=== PATIENT | male | born 1965 | race African-American/Black ===

== ENCOUNTER 2016-10-14 22:58 | Inpatient (IN) | payer SELFPAY ==
[~2016-10-14] VITALS: Ht 182.9 cm; Wt 59.6 kg
[2016-10-14 23:48] LABS: BASO % 0 % (0-3); EOS % 0 % (0-3); HEMATOCRIT 44.3 % (39.0-53.0); HEMOGLOBIN 15.2 g/dL (13.0-17.5); LYMPH % 9 % (24-48); MEAN CORPUSCULAR HEMOGLOBIN 32 pg (25-35); MEAN CORPUSCULAR HGB CONC 34 g/dL (31-37); MEAN CORPUSCULAR VOLUME 93 fL (79-100); MONO % 8 % (0-9); NEUT % 82 % (31-73); PLATELET COUNT 177 x10^3/uL (140-400); RED BLOOD COUNT 4.78 x10^6/uL (4.30-5.70)
[2016-10-14 23:59] LABS: CALCIUM 9.6 mg/dL (8.5-10.1); CREATININE 1.2 mg/dL (0.7-1.3); GFR 77.2; POTASSIUM 3.9 mmol/L (3.5-5.1)
[2016-10-15 00:05] LABS: DIRECT BILIRUBIN 1.4 mg/dL (0.0-0.2); TOTAL BILIRUBIN 1.9 mg/dL (0.2-1.0); TOTAL PROTEIN 7.8 g/dL (6.4-8.2)
[2016-10-15] MEDS ORDERED: HYDROmorphone 2 MG/ML VIAL IV PRN (00:45)
[2016-10-15 00:49] LABS: BILIRUBIN,URINE NEGATIVE (NEG); GLUCOSE,URINE NEGATIVE (NEG); NITRITE,URINE NEGATIVE (NEG); PROTEIN,URINE NEGATIVE (NEG-TRACE)
[2016-10-15 00:54] LABS: BACTERIA,URINE 0 /HPF (0-FEW); RBC,URINE OCC /HPF (0-2); SQUAMOUS EPITHELIAL CELL,UR OCC /LPF; WBC,URINE 0 /HPF (0-4)
[2016-10-15] MEDS ORDERED: ONDANSETRON PF 4 MG/2 ML VIAL. IV ONE (01:00)
[2016-10-15] MEDS ORDERED: IV NORMAL SALINE 1000ML BAG 1,000 ML IV ONE (01:00)
[2016-10-15] MEDS ORDERED: ONDANSETRON PF 4 MG/2 ML VIAL. IV PRN (01:45)
[2016-10-15] MEDS ORDERED: MORPHINE SULFATE 2 MG/ML DISP.SYRIN. IV PRN (01:45)
[2016-10-15] MEDS ORDERED: CONTRAST GIVEN MC PRN (02:15)
[2016-10-15] MEDS ORDERED: IOHEXOL 300 MG/ML 75 ML VIAL IV ONE (02:30)
--- NOTE | 2016-10-15 02:50 | RAD ---
INDICATION : ruq pain, started after dinner tonight, pt ate around 6pm COMPARISON: None TECHNIQUE: Multiple ultrasound images obtained through the abdomen in grayscale and color. FINDINGS: Liver: Echotexture within normal limits in visualized portions of liver. Gallbladder: Gallstones. IVC: Partially distended at level of liver. Common Bile Duct: 5 mm Pancreas: Poorly seen Right Kidney: No hydronephrosis. IMPRESSION: 1. Gallstones are visualized including nonmobile stone in gallbladder neck region. Electronically signed by: Brandt Perez MD (10/15/2016 2:47 AM) [facility]
--- NOTE | 2016-10-15 02:51 | PHYS DOC ---
Past Medical History Past Medical History: Other Additional Past Medical Histor: GALLSTONES, DEAF Past Surgical History: No Surgical History Alcohol Use: Rarely Drug Use: None Adult General Chief Complaint Chief Complaint: ABDOMINAL PAIN HPI HPI 51-year-old male presenting to the emergency department with epigastric abdominal pain over the past 2 hours. His pain is sharp moderate intermittent pain without alleviating factors. It is associated with nausea without vomiting. He denies fevers chills. He denies blood in his stools. Review of systems is negative for chest pain shortness of breath and numbness weakness or tingling. All other review of systems is negative unless otherwise noted in history of present illness. ED course: 51-year-old male presenting with epigastric abdominal pain. Patient was afebrile with a normal heart rate here in our emergency department. Labs obtained. IV established and fluids given along with pain and nausea medications. Since labs came back with increase transaminitis and elevated bilirubin. Ultrasound of the gallbladder was not suggestive of acute cholecystitis. Common bile duct at the upper limits of normal. CT the abdomen pelvis obtained. The patient was then admitted to our hospital for further evaluation workup and care. GI consult placed Review of Systems Review of Systems SEE ABOVE. Physical Exam Physical Exam SEE ABOVE Constitutional: Well developed, well nourished, no acute distress, non-toxic appearance. [] HENT: Normocephalic, atraumatic, bilateral external ears normal, oropharynx moist, no oral exudates, nose normal. [] Eyes: PERRLA, EOMI, conjunctiva normal, no discharge. [] Neck: Normal range of motion, no tenderness, supple, no stridor. [] Cardiovascular:Heart rate regular rhythm, no murmur [] Lungs & Thorax: Bilateral breath sounds clear to auscultation [] Abdomen: Abdomen is soft and mildly tender in the epigastrium without rebound tenderness or guarding. Negative Mckee sign. He did McBurney's point. Skin: Warm, dry, no erythema, no rash. [] Back: No tenderness, no CVA tenderness. [] Extremities: No tenderness, no cyanosis, no clubbing, ROM intact, no edema. [] Neurologic: Alert and oriented X 3, normal motor function, normal sensory function, no focal deficits noted. [] Psychologic: Affect normal, judgement normal, mood normal. [] Current Patient Data Vital Signs Vital Signs Date Time Temp Pulse Resp B/P (MAP) Pulse Ox O2 Delivery O2 Flow Rate FiO2 10/15/16 00:08 78 23 133/76 (95) 99 10/14/16 23:08 Room Air 10/14/16 23:00 97.9 97.9 Lab Values Laboratory Tests Test 10/14/16 23:10 10/14/16 23:24 10/15/16 00:33 10/15/16 00:40 Sodium Level 139 mmol/L (136-145) Potassium Level 3.9 mmol/L (3.5-5.1) Chloride Level 102 mmol/L (98-107) Carbon Dioxide Level 29 mmol/L (21-32) Anion Gap 8 (6-14) Blood Urea Nitrogen 11 mg/dL (8-26) Creatinine 1.2 mg/dL (0.7-1.3) Estimated GFR (Cockcroft-Gault) 77.2 Glucose Level 195 mg/dL (70-99) H Calcium Level 9.6 mg/dL (8.5-10.1) Total Bilirubin 1.9 mg/dL (0.2-1.0) H Direct Bilirubin 1.4 mg/dL (0.0-0.2) H Aspartate Amino Transferase (AST) 261 U/L (15-37) H Alanine Aminotransferase (ALT) 221 U/L (16-63) H Alkaline Phosphatase 141 U/L (46-116) H Troponin I Quantitative < 0.017 ng/mL (0.000-0.055) OS-Wik-X-Type Natriuretic Peptide 13 pg/mL (0-124) Total Protein 7.8 g/dL (6.4-8.2) Albumin 4.0 g/dL (3.4-5.0) Lipase 190 U/L (73-393) White Blood Count 11.0 x10^3/uL (4.0-11.0) Red Blood Count 4.78 x10^6/uL (4.30-5.70) Hemoglobin 15.2 g/dL (13.0-17.5) Hematocrit 44.3 % (39.0-53.0) Mean Corpuscular Volume 93 fL (79-100) Mean Corpuscular Hemoglobin 32 pg (25-35) Mean Corpuscular Hemoglobin Concent 34 g/dL (31-37) Red Cell Distribution Width 13.0 % (11.5-14.5) Platelet Count 177 x10^3/uL (140-400) Neutrophils (%) (Auto) 82 % (31-73) H Lymphocytes (%) (Auto) 9 % (24-48) L Monocytes (%) (Auto) 8 % (0-9) Eosinophils (%) (Auto) 0 % (0-3) Basophils (%) (Auto) 0 % (0-3) Neutrophils # (Auto) 9.0 x10^3uL (1.8-7.7) H Lymphocytes # (Auto) 1.0 x10^3/uL (1.0-4.8) Monocytes # (Auto) 0.9 x10^3/uL (0.0-1.1) Eosinophils # (Auto) 0.0 x10^3/uL (0.0-0.7) Basophils # (Auto) 0.0 x10^3/uL (0.0-0.2) Lactic Acid Level 1.3 mmol/L (0.4-2.0) Urine Collection Type Unknown Urine Color Yellow Urine Clarity Clear Urine pH 7.0 Urine Specific [place] 1.020 Urine Protein Negative mg/dL (NEG-TRACE) Urine Glucose (UA) Negative mg/dL (NEG) Urine Ketones (Stick) Trace mg/dL (NEG) Urine Blood Negative (NEG) Urine Nitrite Negative (NEG) Urine Bilirubin Negative (NEG) Urine Urobilinogen Dipstick 2.0 mg/dL (0.2 mg/dL) Urine Leukocyte Esterase Negative (NEG) Urine RBC Occ /HPF (0-2) Urine WBC 0 /HPF (0-4) Urine Squamous Epithelial Cells Occ /LPF Urine Bacteria 0 /HPF (0-FEW) Urine Mucus Mod /LPF Laboratory Tests 10/14/16 23:24 Laboratory Tests 10/14/16 23:10 EKG EKG [] Radiology/Procedures Radiology/Procedures [] Course & Med Decision Making Course & Med Decision Making Pertinent Labs and Imaging studies reviewed. (See chart for details) [] Dragon Disclaimer Dragon Disclaimer This electronic medical record was generated, in whole or in part, using a voice recognition dictation system. Departure Departure Impression: Primary Impression: Epigastric abdominal pain Additional Impressions: Transaminitis Elevated bilirubin Disposition: ADMITTED INPATIENT Admitting Physician: Calvin Singer Condition: STABLE Referrals: NO PCP (PCP) Problem Qualifiers JAILYN SCOTT MD Oct 15, 2016 02:51
[2016-10-15 03:18] VITALS: BP 122/72
[2016-10-15] MEDS: IV NORMAL SALINE 1000ML BAG 1,000 ML IV SCH ×4 (03:30→23:05)
--- NOTE | 2016-10-15 03:58 | RAD ---
INDICATION: EPIGASTRIC PAIN TONIGHT, INCREASED LFTS
75ML OMNI 300 COMPARISON: Ultrasound earlier same day TECHNIQUE: Axial CT images were obtained through the abdomen and pelvis with intravenous contrast. One or more of the following individualized dose reduction techniques were utilized for this examination: 1. Automated exposure control; 2. Adjustment of the mA and/or kV according to patient size; 3. Use of iterative reconstruction technique. FINDINGS: Mild probable atelectasis lung bases. No abdominal aortic aneurysm. No intrahepatic bile duct dilation. No peripancreatic edema. No hydronephrosis. Spleen prominent in size, 14 cm craniocaudal. Bladder is partially distended. Calcifications of prostate. Colonic diverticulosis. The appendix does not appear inflamed. No dilated loops of bowel to suggest obstruction. Small fat-containing umbilical hernia is suspected. Degenerative changes of spine. This includes suspected disc protrusions at multiple levels. IMPRESSION: 1. No evidence of bowel obstruction, hydronephrosis or appendicitis. Electronically signed by: Brandt Perez MD (10/15/2016 3:55 AM) [facility]
--- NOTE | 2016-10-15 06:20 | EKG ---
[facility] [address] [place] [address] Test Date: 2016-10-15 Test Time: 00:32:58 Pat Name: BRYAN QUILES Department: Room: [facility] Gender: M Electric Meter Technician: : 1965 Requested By: JAILYN SCOTT Order Number: [id number] Reading MD: Shannon Anderson Measurements Intervals Rosie Rate: 74 P: 64 IA: 154 QRS: 42 QRSD: 80 T: 15 QT: 350 QTc: 393 Interpretive Statements SINUS RHYTHM LEFT ATRIAL ABNORMALITY QRS(T) CONTOUR ABNORMALITY CONSIDER ANTEROLATERAL MYOCARDIAL DAMAGE Electronically Signed On 10-18-2016 21:17:55 CDT by Shannon Anderson
[2016-10-15 07:00] VITALS: BP 126/71
--- NOTE | 2016-10-15 09:05 | PDOC2 ---
GI CONSULT Reason For Consult: Obstructive transaminitis HPI: HPI: 51 y/o male who is deaf. Unfortunately there is no film painter available and I was unable to reach his family by phone (home and cell). History obtained from chart, some w/ pen/paper. He indicates LUQ and epigastric pain began that night at 10:45 p.m. Pain is worsened w/ eating. ER notes indicate associated n /v, he does not indicate this to me. Has had some diarrhea, denies bleeding. Unclear if he has issues w/ acid reflux/heartburn. Significant labs: bili 1.9, direct 1.4, AST 261, ALT 221, Alk Phos 141. US showed gallstones including a nonmobile stone in the neck of the gallbladder. CT A/P was unrevealing. PMH: PMH: deaf; when asked about other PMH, he cannot elaborate Social History: Smoke: No ALCOHOL: none ROS: Difficult to obtain. GEN: Denies fevers CV: Denies chest pain RESP: Denies shortness of air GI: Per HPI ENDO: Denies weight changes MSK: Denies weakness SKIN: Denies pruritus Vitals: Vitals: Vital Signs Date Time Temp Pulse Resp B/P (MAP) Pulse Ox O2 Delivery O2 Flow Rate FiO2 10/15/16 07:00 97.6 69 18 126/71 (89) 95 Room Air 97.6 Labs: Labs: Laboratory Tests Test 10/14/16 23:10 10/14/16 23:24 10/15/16 00:33 10/15/16 00:40 Sodium Level 139 mmol/L (136-145) Potassium Level 3.9 mmol/L (3.5-5.1) Chloride Level 102 mmol/L (98-107) Carbon Dioxide Level 29 mmol/L (21-32) Anion Gap 8 (6-14) Blood Urea Nitrogen 11 mg/dL (8-26) Creatinine 1.2 mg/dL (0.7-1.3) Estimated GFR (Cockcroft-Gault) 77.2 Glucose Level 195 mg/dL (70-99) Calcium Level 9.6 mg/dL (8.5-10.1) Total Bilirubin 1.9 mg/dL (0.2-1.0) Direct Bilirubin 1.4 mg/dL (0.0-0.2) Aspartate Amino Transf (AST/SGOT) 261 U/L (15-37) Alanine Aminotransferase (ALT/SGPT) 221 U/L (16-63) Alkaline Phosphatase 141 U/L (46-116) Troponin I Quantitative < 0.017 ng/mL (0.000-0.055) YX-Jqs-I-Type Natriuretic Peptide 13 pg/mL (0-124) Total Protein 7.8 g/dL (6.4-8.2) Albumin 4.0 g/dL (3.4-5.0) Lipase 190 U/L (73-393) White Blood Count 11.0 x10^3/uL (4.0-11.0) Red Blood Count 4.78 x10^6/uL (4.30-5.70) Hemoglobin 15.2 g/dL (13.0-17.5) Hematocrit 44.3 % (39.0-53.0) Mean Corpuscular Volume 93 fL (79-100) Mean Corpuscular Hemoglobin 32 pg (25-35) Mean Corpuscular Hemoglobin Concent 34 g/dL (31-37) Red Cell Distribution Width 13.0 % (11.5-14.5) Platelet Count 177 x10^3/uL (140-400) Neutrophils (%) (Auto) 82 % (31-73) Lymphocytes (%) (Auto) 9 % (24-48) Monocytes (%) (Auto) 8 % (0-9) Eosinophils (%) (Auto) 0 % (0-3) Basophils (%) (Auto) 0 % (0-3) Neutrophils # (Auto) 9.0 x10^3uL (1.8-7.7) Lymphocytes # (Auto) 1.0 x10^3/uL (1.0-4.8) Monocytes # (Auto) 0.9 x10^3/uL (0.0-1.1) Eosinophils # (Auto) 0.0 x10^3/uL (0.0-0.7) Basophils # (Auto) 0.0 x10^3/uL (0.0-0.2) Lactic Acid Level 1.3 mmol/L (0.4-2.0) Urine Collection Type Unknown Urine Color Yellow Urine Clarity Clear Urine pH 7.0 Urine Specific [place] 1.020 Urine Protein Negative mg/dL (NEG-TRACE) Urine Glucose (UA) Negative mg/dL (NEG) Urine Ketones (Stick) Trace mg/dL (NEG) Urine Blood Negative (NEG) Urine Nitrite Negative (NEG) Urine Bilirubin Negative (NEG) Urine Urobilinogen Dipstick 2.0 mg/dL (0.2 mg/dL) Urine Leukocyte Esterase Negative (NEG) Urine RBC Occ /HPF (0-2) Urine WBC 0 /HPF (0-4) Urine Squamous Epithelial Cells Occ /LPF Urine Bacteria 0 /HPF (0-FEW) Urine Mucus Mod /LPF Allergies: Coded Allergies: No Known Drug Allergies (Unverified , 10/15/16) Medications: Current Medications Medications (Trade) Dose Ordered Sig/Sheeba Route PRN Reason Start Time Stop Time Status Last Admin Dose Admin Hydromorphone HCl (Dilaudid) 0.5 mg PRN Q1HR PRN IV SEVERE PAIN 10/15/16 00:45 10/15/16 07:00 DC 10/15/16 00:47 Ondansetron HCl (Zofran) 4 mg 1X ONCE IV 10/15/16 01:00 10/15/16 01:01 DC 10/15/16 00:46 Sodium Chloride 1,000 ml @ 1,000 mls/hr 1X ONCE IV 10/15/16 01:00 10/15/16 01:59 DC 10/15/16 00:47 Sodium Chloride 1,000 ml @ 100 mls/hr Q10H IV 10/15/16 01:41 10/16/16 01:40 10/15/16 03:30 Iohexol (Omnipaque 300 Mg/ml) 75 ml 1X ONCE IV 10/15/16 02:30 10/15/16 02:31 DC 10/15/16 02:11 Imaging: Imaging: RUQ US 10/15/16 IMPRESSION: 1. Gallstones are visualized including nonmobile stone in gallbladder neck region. CT A/P 10/15/16 FINDINGS: Mild probable atelectasis lung bases. No abdominal aortic aneurysm. No intrahepatic bile duct dilation. No peripancreatic edema. No hydronephrosis. Spleen prominent in size, 14 cm craniocaudal. Bladder is partially distended. Calcifications of prostate. Colonic diverticulosis. The appendix does not appear inflamed. No dilated loops of bowel to suggest obstruction. Small fat-containing umbilical hernia is suspected. Degenerative changes of spine. This includes suspected disc protrusions at multiple levels. IMPRESSION: 1. No evidence of bowel obstruction, hydronephrosis or appendicitis. PE: GEN: NAD HEENT: Atraumatic, PERRL LUNGS: CTAB HEART: RRR ABD: NABS, S/ND, LUQ to epigastrium tenderness EXTREMITY: No edema SKIN: No rashes, no jaundice NEURO/PSYCH: awake/alert A/P: A/P: Cholelithiasis Elevated LFTs LUQ/epigastric pain Deaf -- Difficult history, hearing impaired. Hopefully will be able to obtain more from family later (no answer when attempted mother's home/cell). 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 Will consult surgery for cholecystectomy w/ IOC. Will add H2 orquidea empirically. IVANA THORNTON Oct 15, 2016 09:05
--- NOTE | 2016-10-15 09:47 | PDOC1 ---
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 At the time of my examination patient's pain is 1 / 10 minutes, Denies any nausea vomiting or jaundice or hematemesis or hematochezia. 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 Allergies NKDA Social History Smoke: No ALCOHOL: none Current Problem List Problem List Problems Medical Problems: (1) Elevated bilirubin Status: Acute (2) Epigastric abdominal pain Status: Acute (3) Transaminitis Status: Acute Current Medications Current Medications Current Medications Medications (Trade) Dose Ordered Sig/Sheeba Start Time Stop Time Status Last Admin Dose Admin Famotidine (Pepcid) 20 mg QHS 10/15/16 21:00 Hydromorphone HCl (Dilaudid) 0.5 mg PRN Q1HR PRN 10/15/16 00:45 10/15/16 07:00 DC 10/15/16 00:47 Info (Do NOT chart on this entry -- for MONITORING) 1 each PRN DAILY PRN 10/15/16 02:15 10/17/16 02:14 Iohexol (Omnipaque 300 Mg/ml) 75 ml 1X ONCE 10/15/16 02:30 10/15/16 02:31 DC 10/15/16 02:11 Morphine Sulfate 2 mg PRN Q2HR PRN 10/15/16 01:45 10/16/16 01:44 Ondansetron HCl (Zofran) 4 mg PRN Q8HRS PRN 10/15/16 01:45 10/16/16 01:44 Sodium Chloride 1,000 ml @ 100 mls/hr Q10H 10/15/16 01:41 10/16/16 01:40 10/15/16 03:30 Allergies Allergies Allergies Coded Allergies Type Severity Reaction Last Updated Verified No Known Drug Allergies 10/15/16 No ROS Review of System CONSTITUTIONAL: No fever or chills EYES: No recent changes SKIN: No rash or itching CARDIOVASCULAR: No chest pain, syncope, palpitations, or edema RESPIRATORY: No SOB or cough GASTROINTESTINAL: abdominal pain NEUROLOGICAL: No headaches or weakness ENDOCRINE: No cold or heat intolerance GENITOURINARY: No urgency or frequency of urination MUSCULOSKELETAL: No back pain or joint pain LYMPHATICS: No enlarged lymph nodes PSYCHIATRIC: No anxiety or depression Physical Exam Physical Exam GEN.: No apparent distress. Alert and oriented. HEENT: Head is normocephalic, atraumatic NECK: Supple. LUNGS: Clear to auscultation. HEART: RRR, S1, S2 present. Peripheral pulses intact ABDOMEN: Soft, nontender. Positive bowel sounds. EXTREMITIES: Without any cyanosis. NEUROLOGIC: Normal speech, normal tone PSYCHIATRIC: Normal affect, normal mood. SKIN: No ulcerations Vitals Vitals Vital Signs Date Time Temp Pulse Resp B/P (MAP) Pulse Ox O2 Delivery O2 Flow Rate FiO2 10/15/16 07:00 97.6 69 18 126/71 (89) 95 Room Air 97.6 Labs Labs Laboratory Tests Test 10/14/16 23:10 10/14/16 23:24 10/15/16 00:33 10/15/16 00:40 Sodium Level 139 mmol/L (136-145) Potassium Level 3.9 mmol/L (3.5-5.1) Chloride Level 102 mmol/L (98-107) Carbon Dioxide Level 29 mmol/L (21-32) Anion Gap 8 (6-14) Blood Urea Nitrogen 11 mg/dL (8-26) Creatinine 1.2 mg/dL (0.7-1.3) Estimated GFR (Cockcroft-Gault) 77.2 Glucose Level 195 mg/dL (70-99) Calcium Level 9.6 mg/dL (8.5-10.1) Total Bilirubin 1.9 mg/dL (0.2-1.0) Direct Bilirubin 1.4 mg/dL (0.0-0.2) Aspartate Amino Transf (AST/SGOT) 261 U/L (15-37) Alanine Aminotransferase (ALT/SGPT) 221 U/L (16-63) Alkaline Phosphatase 141 U/L (46-116) Troponin I Quantitative < 0.017 ng/mL (0.000-0.055) AB-Qto-S-Type Natriuretic Peptide 13 pg/mL (0-124) Total Protein 7.8 g/dL (6.4-8.2) Albumin 4.0 g/dL (3.4-5.0) Lipase 190 U/L (73-393) White Blood Count 11.0 x10^3/uL (4.0-11.0) Red Blood Count 4.78 x10^6/uL (4.30-5.70) Hemoglobin 15.2 g/dL (13.0-17.5) Hematocrit 44.3 % (39.0-53.0) Mean Corpuscular Volume 93 fL (79-100) Mean Corpuscular Hemoglobin 32 pg (25-35) Mean Corpuscular Hemoglobin Concent 34 g/dL (31-37) Red Cell Distribution Width 13.0 % (11.5-14.5) Platelet Count 177 x10^3/uL (140-400) Neutrophils (%) (Auto) 82 % (31-73) Lymphocytes (%) (Auto) 9 % (24-48) Monocytes (%) (Auto) 8 % (0-9) Eosinophils (%) (Auto) 0 % (0-3) Basophils (%) (Auto) 0 % (0-3) Neutrophils # (Auto) 9.0 x10^3uL (1.8-7.7) Lymphocytes # (Auto) 1.0 x10^3/uL (1.0-4.8) Monocytes # (Auto) 0.9 x10^3/uL (0.0-1.1) Eosinophils # (Auto) 0.0 x10^3/uL (0.0-0.7) Basophils # (Auto) 0.0 x10^3/uL (0.0-0.2) Lactic Acid Level 1.3 mmol/L (0.4-2.0) Urine Collection Type Unknown Urine Color Yellow Urine Clarity Clear Urine pH 7.0 Urine Specific [place] 1.020 Urine Protein Negative mg/dL (NEG-TRACE) Urine Glucose (UA) Negative mg/dL (NEG) Urine Ketones (Stick) Trace mg/dL (NEG) Urine Blood Negative (NEG) Urine Nitrite Negative (NEG) Urine Bilirubin Negative (NEG) Urine Urobilinogen Dipstick 2.0 mg/dL (0.2 mg/dL) Urine Leukocyte Esterase Negative (NEG) Urine RBC Occ /HPF (0-2) Urine WBC 0 /HPF (0-4) Urine Squamous Epithelial Cells Occ /LPF Urine Bacteria 0 /HPF (0-FEW) Urine Mucus Mod /LPF Laboratory Tests Test 10/14/16 23:10 10/14/16 23:24 10/15/16 00:33 10/15/16 00:40 Sodium Level 139 mmol/L (136-145) Potassium Level 3.9 mmol/L (3.5-5.1) Chloride Level 102 mmol/L (98-107) Carbon Dioxide Level 29 mmol/L (21-32) Anion Gap 8 (6-14) Blood Urea Nitrogen 11 mg/dL (8-26) Creatinine 1.2 mg/dL (0.7-1.3) Estimated GFR (Cockcroft-Gault) 77.2 Glucose Level 195 mg/dL (70-99) Calcium Level 9.6 mg/dL (8.5-10.1) Total Bilirubin 1.9 mg/dL (0.2-1.0) Direct Bilirubin 1.4 mg/dL (0.0-0.2) Aspartate Amino Transf (AST/SGOT) 261 U/L (15-37) Alanine Aminotransferase (ALT/SGPT) 221 U/L (16-63) Alkaline Phosphatase 141 U/L (46-116) Troponin I Quantitative < 0.017 ng/mL (0.000-0.055) HP-Yiu-H-Type Natriuretic Peptide 13 pg/mL (0-124) Total Protein 7.8 g/dL (6.4-8.2) Albumin 4.0 g/dL (3.4-5.0) Lipase 190 U/L (73-393) White Blood Count 11.0 x10^3/uL (4.0-11.0) Red Blood Count 4.78 x10^6/uL (4.30-5.70) Hemoglobin 15.2 g/dL (13.0-17.5) Hematocrit 44.3 % (39.0-53.0) Mean Corpuscular Volume 93 fL (79-100) Mean Corpuscular Hemoglobin 32 pg (25-35) Mean Corpuscular Hemoglobin Concent 34 g/dL (31-37) Red Cell Distribution Width 13.0 % (11.5-14.5) Platelet Count 177 x10^3/uL (140-400) Neutrophils (%) (Auto) 82 % (31-73) Lymphocytes (%) (Auto) 9 % (24-48) Monocytes (%) (Auto) 8 % (0-9) Eosinophils (%) (Auto) 0 % (0-3) Basophils (%) (Auto) 0 % (0-3) Neutrophils # (Auto) 9.0 x10^3uL (1.8-7.7) Lymphocytes # (Auto) 1.0 x10^3/uL (1.0-4.8) Monocytes # (Auto) 0.9 x10^3/uL (0.0-1.1) Eosinophils # (Auto) 0.0 x10^3/uL (0.0-0.7) Basophils # (Auto) 0.0 x10^3/uL (0.0-0.2) Lactic Acid Level 1.3 mmol/L (0.4-2.0) Urine Collection Type Unknown Urine Color Yellow Urine Clarity Clear Urine pH 7.0 Urine Specific [place] 1.020 Urine Protein Negative mg/dL (NEG-TRACE) Urine Glucose (UA) Negative mg/dL (NEG) Urine Ketones (Stick) Trace mg/dL (NEG) Urine Blood Negative (NEG) Urine Nitrite Negative (NEG) Urine Bilirubin Negative (NEG) Urine Urobilinogen Dipstick 2.0 mg/dL (0.2 mg/dL) Urine Leukocyte Esterase Negative (NEG) Urine RBC Occ /HPF (0-2) Urine WBC 0 /HPF (0-4) Urine Squamous Epithelial Cells Occ /LPF Urine Bacteria 0 /HPF (0-FEW) Urine Mucus Mod /LPF VTE Prophylaxis Ordered VTE Prophylaxis Devices: Yes VTE Pharmacological Prophylaxi: No Assessment/Plan Assessment/Plan Acute abdominal pain: Most likely due to gallstones, visualized on ultrasound of the abdomen. Nothing by mouth today, IV hydration with normal saline, pain control with IV morphine as needed, monitor CBC BMP in a.m. Mild elevation of LFTs: Continue to monitor, general surgery and gastroenterology consultation, ordering a HIDA scan today. Plan discussed with the patient's mother at bedside agree with current plan and management. ELIAS PRESTON MD 10, 2017 09:47
--- NOTE | 2016-10-15 10:52 | PDOC2 ---
SEVERINO MORSE VALET 10/15/16 1052: CONSULT Date of Consult Date of Consult DATE: 10/15/16 TIME: 10:46 Reason for Consult Reason for Consult: cholelithiasis Referring Physician Referring Physician: Dr Figueroa Identification/Chief Complaint Chief Complaint abd pain Problems: Source Source: Caregiver, Chart review History of Present Illness Reason for Visit: Patient with hearing impairment--mother present reports he had severe epigastric pain after dinner last night. Similar episode 4 years ago, however resolved. Currently without pain Past Medical History Past Medical History no significant hx Past Surgical History Past Surgical History: No pertinent history Family History Family History: Other (noncontributory to current illness) Social History No ALCOHOL: none Lives: with Family Current Problem List Problem List Problems Medical Problems: (1) Elevated bilirubin Status: Acute (2) Epigastric abdominal pain Status: Acute (3) Transaminitis Status: Acute Current Medications Current Medications Current Medications Hydromorphone HCl (Dilaudid) 0.5 mg PRN Q1HR PRN IV SEVERE PAIN Last administered on 10/15/16 00:47; Start 10/15/16 at 00:45; Stop 10/15/16 at 07:00 ; Status DC Ondansetron HCl (Zofran) 4 mg 1X ONCE IV Last administered on 10/15/16 00:46 ; Start 10/15/16 at 01:00; Stop 10/15/16 at 01:01; Status DC Sodium Chloride 1,000 ml @ 1,000 mls/hr 1X ONCE IV Last administered on 00:47; Start 10/15/16 at 01:00; Stop 10/15/16 at 01:59; Status DC Ondansetron HCl (Zofran) 4 mg PRN Q8HRS PRN IV NAUSEA/VOMITING; Start 10/15/16 at 01:45; Stop 10/16/16 at 01:44 Morphine Sulfate 2 mg PRN Q2HR PRN IV SEVERE PAIN; Start 10/15/16 at 01:45; Stop 10/16/16 at 01:44 Sodium Chloride 1,000 ml @ 100 mls/hr Q10H IV Last administered on 10/15/16 03:30; Start 10/15/16 at 01:41; Stop 10/16/16 at 01:40 Iohexol (Omnipaque 300 Mg/ml) 75 ml 1X ONCE IV Last administered on 10/15/16t 02:11; Start 10/15/16 at 02:30; Stop 10/15/16 at 02:31; Status DC Info (Do NOT chart on this entry -- for MONITORING) 1 each PRN DAILY PRN MC SEE COMMENTS; Start 10/15/16 at 02:15; Stop 10/17/16 at 02:14 Famotidine (Pepcid) 20 mg QHS IVP ; Start 10/15/16 at 21:00 Sodium Chloride 1,000 ml @ 75 mls/hr [id number] IV ; Start 10/15/16 at 09:45 Allergies Allergies: Coded Allergies: No Known Drug Allergies (Unverified , 10/15/16) Physical Exam General: Alert, Oriented X3, Cooperative HEENT: PERRLA, Mucous membr. moist/pink Lungs: Clear to auscultation Heart: Regular rate, Normal S1, Normal S2 Abdomen: Soft, No tenderness, Other (small umbo hernia) Extremities: No clubbing, No cyanosis Skin: No rashes, No breakdown Neuro: Normal speech, Sensation intact Psych/Mental Status: Mental status NL, Mood NL MUSCULOSKELETAL: No deformity, No swelling Vitals VITALS Vital Signs Date Time Temp Pulse Resp B/P (MAP) Pulse Ox O2 Delivery O2 Flow Rate FiO2 10/15/16 08:00 Room Air 10/15/16 07:00 97.6 69 18 126/71 (89) 95 97.6 Labs Labs Laboratory Tests Test 10/14/16 23:10 10/14/16 23:24 10/15/16 00:33 10/15/16 00:40 Sodium Level 139 mmol/L (136-145) Potassium Level 3.9 mmol/L (3.5-5.1) Chloride Level 102 mmol/L (98-107) Carbon Dioxide Level 29 mmol/L (21-32) Anion Gap 8 (6-14) Blood Urea Nitrogen 11 mg/dL (8-26) Creatinine 1.2 mg/dL (0.7-1.3) Estimated GFR (Cockcroft-Gault) 77.2 Glucose Level 195 mg/dL (70-99) Calcium Level 9.6 mg/dL (8.5-10.1) Total Bilirubin 1.9 mg/dL (0.2-1.0) Direct Bilirubin 1.4 mg/dL (0.0-0.2) Aspartate Amino Transf (AST/SGOT) 261 U/L (15-37) Alanine Aminotransferase (ALT/SGPT) 221 U/L (16-63) Alkaline Phosphatase 141 U/L (46-116) Troponin I Quantitative < 0.017 ng/mL (0.000-0.055) EU-Nzj-[id number]-Type Natriuretic Peptide 13 pg/mL (0-124) Total Protein 7.8 g/dL (6.4-8.2) Albumin 4.0 g/dL (3.4-5.0) Lipase 190 U/L (73-393) White Blood Count 11.0 x10^3/uL (4.0-11.0) Red Blood Count 4.78 x10^6/uL (4.30-5.70) Hemoglobin 15.2 g/dL (13.0-17.5) Hematocrit 44.3 % (39.0-53.0) Mean Corpuscular Volume 93 fL (79-100) Mean Corpuscular Hemoglobin 32 pg (25-35) Mean Corpuscular Hemoglobin Concent 34 g/dL (31-37) Red Cell Distribution Width 13.0 % (11.5-14.5) Platelet Count 177 x10^3/uL (140-400) Neutrophils (%) (Auto) 82 % (31-73) Lymphocytes (%) (Auto) 9 % (24-48) Monocytes (%) (Auto) 8 % (0-9) Eosinophils (%) (Auto) 0 % (0-3) Basophils (%) (Auto) 0 % (0-3) Neutrophils # (Auto) 9.0 x10^3uL (1.8-7.7) Lymphocytes # (Auto) 1.0 x10^3/uL (1.0-4.8) Monocytes # (Auto) 0.9 x10^3/uL (0.0-1.1) Eosinophils # (Auto) 0.0 x10^3/uL (0.0-0.7) Basophils # (Auto) 0.0 x10^3/uL (0.0-0.2) Lactic Acid Level 1.3 mmol/L (0.4-2.0) Urine Collection Type Unknown Urine Color Yellow Urine Clarity Clear Urine pH 7.0 Urine Specific [place] 1.020 Urine Protein Negative mg/dL (NEG-TRACE) Urine Glucose (UA) Negative mg/dL (NEG) Urine Ketones (Stick) Trace mg/dL (NEG) Urine Blood Negative (NEG) Urine Nitrite Negative (NEG) Urine Bilirubin Negative (NEG) Urine Urobilinogen Dipstick 2.0 mg/dL (0.2 mg/dL) Urine Leukocyte Esterase Negative (NEG) Urine RBC Occ /HPF (0-2) Urine WBC 0 /HPF (0-4) Urine Squamous Epithelial Cells Occ /LPF Urine Bacteria 0 /HPF (0-FEW) Urine Mucus Mod /LPF Laboratory Tests Test 10/14/16 23:10 10/14/16 23:24 10/15/16 00:33 10/15/16 00:40 Sodium Level 139 mmol/L (136-145) Potassium Level 3.9 mmol/L (3.5-5.1) Chloride Level 102 mmol/L (98-107) Carbon Dioxide Level 29 mmol/L (21-32) Anion Gap 8 (6-14) Blood Urea Nitrogen 11 mg/dL (8-26) Creatinine 1.2 mg/dL (0.7-1.3) Estimated GFR (Cockcroft-Gault) 77.2 Glucose Level 195 mg/dL (70-99) Calcium Level 9.6 mg/dL (8.5-10.1) Total Bilirubin 1.9 mg/dL (0.2-1.0) Direct Bilirubin 1.4 mg/dL (0.0-0.2) Aspartate Amino Transf (AST/SGOT) 261 U/L (15-37) Alanine Aminotransferase (ALT/SGPT) 221 U/L (16-63) Alkaline Phosphatase 141 U/L (46-116) Troponin I Quantitative < 0.017 ng/mL (0.000-0.055) QL-Yvd-Q-Type Natriuretic Peptide 13 pg/mL (0-124) Total Protein 7.8 g/dL (6.4-8.2) Albumin 4.0 g/dL (3.4-5.0) Lipase 190 U/L (73-393) White Blood Count 11.0 x10^3/uL (4.0-11.0) Red Blood Count 4.78 x10^6/uL (4.30-5.70) Hemoglobin 15.2 g/dL (13.0-17.5) Hematocrit 44.3 % (39.0-53.0) Mean Corpuscular Volume 93 fL (79-100) Mean Corpuscular Hemoglobin 32 pg (25-35) Mean Corpuscular Hemoglobin Concent 34 g/dL (31-37) Red Cell Distribution Width 13.0 % (11.5-14.5) Platelet Count 177 x10^3/uL (140-400) Neutrophils (%) (Auto) 82 % (31-73) Lymphocytes (%) (Auto) 9 % (24-48) Monocytes (%) (Auto) 8 % (0-9) Eosinophils (%) (Auto) 0 % (0-3) Basophils (%) (Auto) 0 % (0-3) Neutrophils # (Auto) 9.0 x10^3uL (1.8-7.7) Lymphocytes # (Auto) 1.0 x10^3/uL (1.0-4.8) Monocytes # (Auto) 0.9 x10^3/uL (0.0-1.1) Eosinophils # (Auto) 0.0 x10^3/uL (0.0-0.7) Basophils # (Auto) 0.0 x10^3/uL (0.0-0.2) Lactic Acid Level 1.3 mmol/L (0.4-2.0) Urine Collection Type Unknown Urine Color Yellow Urine Clarity Clear Urine pH 7.0 Urine Specific [place] 1.020 Urine Protein Negative mg/dL (NEG-TRACE) Urine Glucose (UA) Negative mg/dL (NEG) Urine Ketones (Stick) Trace mg/dL (NEG) Urine Blood Negative (NEG) Urine Nitrite Negative (NEG) Urine Bilirubin Negative (NEG) Urine Urobilinogen Dipstick 2.0 mg/dL (0.2 mg/dL) Urine Leukocyte Esterase Negative (NEG) Urine RBC Occ /HPF (0-2) Urine WBC 0 /HPF (0-4) Urine Squamous Epithelial Cells Occ /LPF Urine Bacteria 0 /HPF (0-FEW) Urine Mucus Mod /LPF Assessment/Plan Assessment/Plan abdominal pain. cholelithiasis elevated LFTS, nonmobile gallstone in neck of gb mother concerned about no insurance with surgery--GI following will check HIDA today d/w dr [place] follow LFTS CHAMP IRELAND MD 10/15/16 1652: CONSULT Allergies Allergies: Coded Allergies: No Known Drug Allergies (Unverified , 10/15/16) Assessment/Plan Assessment/Plan Reviewed, agree with above, no CT findings to suggest Mirizzi's syndrome; LFTs elevated, but no bile duct dilation; will check HIDA to further evaluate SEVERINO MORSE APRN Oct 15, 2016 10:52 CHAMP IRELAND MD Oct 15, 2016 16:52
[2016-10-15 11:00] VITALS: BP 121/74
[2016-10-15] MEDS ORDERED: MORPHINE SULFATE 4 MG/ML DISP.SYRIN. IV ONE (14:15)
[2016-10-15 15:00] VITALS: BP 129/80
--- NOTE | 2016-10-15 16:27 | RAD ---
Radionuclide hepatobiliary scan, 10/15/2016: History: Abdominal pain Following IV injection of 5.3 mCi of technetium 99m Choletec there was prompt uptake of the radionuclide from the blood stream by the liver. Imaging obtained out to one hour did not demonstrate bile duct, gallbladder or small bowel activity. Additional imaging was performed following IV injection of 4 mg of 14. Again, there was no extension of activity into the bile ducts, gallbladder or small bowel. The pattern suggests intrahepatic cholestasis. Severe biliary obstruction is less likely as no dilated bile ducts were evident on the current CT or ultrasound studies. IMPRESSION: No demonstrable excretion of activity into the biliary system suggesting intrahepatic cholestasis. High-grade bile duct obstruction is less likely.
[2016-10-15 19:00] VITALS: BP 125/79
[2016-10-15] MEDS: FAMOTIDINE 20 MG/2 ML VIAL IVP SCH (20:52)
[2016-10-15 23:00] VITALS: BP 134/79
--- NOTE | 2016-10-16 01:32 | ACF ---
Admission Forms Criteria I am unable to edit this form. This patient was placed as observation status. This is the only avenue in our electronic medical record for me to document this. All of the above information is not my professional medical opinion. Admission Criteria Met?: Pending KEENAN GRANT Oct 16, 2016 01:32 JAILYN SCOTT MD Oct 16, 2016 03:59
[2016-10-16] MEDS: IV NORMAL SALINE 1000ML BAG 1,000 ML IV SCH ×2 (05:06→22:17)
[2016-10-16 06:51] LABS: ALBUMIN 3.5 g/dL (3.4-5.0); ALBUMIN/GLOBULIN RATIO 1.1 (1.0-1.7); CALCIUM 9.5 mg/dL (8.5-10.1); GFR 95.3; POTASSIUM 4.4 mmol/L (3.5-5.1); TOTAL BILIRUBIN 3.7 mg/dL (0.2-1.0); TOTAL PROTEIN 6.8 g/dL (6.4-8.2)
[2016-10-16 07:00] VITALS: BP 128/69
--- NOTE | 2016-10-16 10:42 | PDOC ---
PROGRESS NOTES Chief Complaint Chief Complaint Chief complaint: Abdominal pain Assessment and plan #1 abdominal pain with cholelithiasis and obstructive jaundice with elevated LFTs: He is currently on a clear liquid diet, no pain, elevating the general surgery and GI recommendations. Monitor LFTs ordered CMP for a.m. #2 continue IV hydration with normal saline. Discussed with mother at bedside, elevating final recommendations from a general surgery. Vitals Vitals Vital Signs Date Time Temp Pulse Resp B/P (MAP) Pulse Ox O2 Delivery O2 Flow Rate FiO2 10/16/16 07:00 98.4 66 18 128/69 (88) 99 Room Air 98.4 Physical Exam General: Alert, Cooperative Heart: Regular rate, Normal S1, Normal S2 Lungs: Clear Abdomen: Soft, No tenderness, Other (small umbo hernia) Extremities: No clubbing, No cyanosis Skin: No rashes, No breakdown Labs LABS Laboratory Tests Test 10/16/16 06:00 Sodium Level 142 mmol/L (136-145) Potassium Level 4.4 mmol/L (3.5-5.1) Chloride Level 105 mmol/L (98-107) Carbon Dioxide Level 28 mmol/L (21-32) Anion Gap 9 (6-14) Blood Urea Nitrogen 6 mg/dL (8-26) Creatinine 1.0 mg/dL (0.7-1.3) Estimated GFR (Cockcroft-Gault) 95.3 BUN/Creatinine Ratio 6 (6-20) Glucose Level 94 mg/dL (70-99) Calcium Level 9.5 mg/dL (8.5-10.1) Total Bilirubin 3.7 mg/dL (0.2-1.0) Aspartate Amino Transf (AST/SGOT) 437 U/L (15-37) Alanine Aminotransferase (ALT/SGPT) 599 U/L (16-63) Alkaline Phosphatase 306 U/L (46-116) Total Protein 6.8 g/dL (6.4-8.2) Albumin 3.5 g/dL (3.4-5.0) Albumin/Globulin Ratio 1.1 (1.0-1.7) Assessment and Plan Assessmemt and Plan Problems Medical Problems: (1) Elevated bilirubin Status: Acute (2) Epigastric abdominal pain Status: Acute (3) Transaminitis Status: Acute Problems: Comment Review of Relevant I have reviewed the following items jarrod (where applicable) has been applied. Labs Laboratory Tests Test 10/14/16 23:10 10/14/16 23:24 10/15/16 00:33 10/15/16 00:40 Sodium Level 139 mmol/L (136-145) Potassium Level 3.9 mmol/L (3.5-5.1) Chloride Level 102 mmol/L (98-107) Carbon Dioxide Level 29 mmol/L (21-32) Anion Gap 8 (6-14) Blood Urea Nitrogen 11 mg/dL (8-26) Creatinine 1.2 mg/dL (0.7-1.3) Estimated GFR (Cockcroft-Gault) 77.2 Glucose Level 195 mg/dL (70-99) Calcium Level 9.6 mg/dL (8.5-10.1) Total Bilirubin 1.9 mg/dL (0.2-1.0) Direct Bilirubin 1.4 mg/dL (0.0-0.2) Aspartate Amino Transf (AST/SGOT) 261 U/L (15-37) Alanine Aminotransferase (ALT/SGPT) 221 U/L (16-63) Alkaline Phosphatase 141 U/L (46-116) Troponin I Quantitative < 0.017 ng/mL (0.000-0.055) WV-Vpe-S-Type Natriuretic Peptide 13 pg/mL (0-124) Total Protein 7.8 g/dL (6.4-8.2) Albumin 4.0 g/dL (3.4-5.0) Lipase 190 U/L (73-393) White Blood Count 11.0 x10^3/uL (4.0-11.0) Red Blood Count 4.78 x10^6/uL (4.30-5.70) Hemoglobin 15.2 g/dL (13.0-17.5) Hematocrit 44.3 % (39.0-53.0) Mean Corpuscular Volume 93 fL (79-100) Mean Corpuscular Hemoglobin 32 pg (25-35) Mean Corpuscular Hemoglobin Concent 34 g/dL (31-37) Red Cell Distribution Width 13.0 % (11.5-14.5) Platelet Count 177 x10^3/uL (140-400) Neutrophils (%) (Auto) 82 % (31-73) Lymphocytes (%) (Auto) 9 % (24-48) Monocytes (%) (Auto) 8 % (0-9) Eosinophils (%) (Auto) 0 % (0-3) Basophils (%) (Auto) 0 % (0-3) Neutrophils # (Auto) 9.0 x10^3uL (1.8-7.7) Lymphocytes # (Auto) 1.0 x10^3/uL (1.0-4.8) Monocytes # (Auto) 0.9 x10^3/uL (0.0-1.1) Eosinophils # (Auto) 0.0 x10^3/uL (0.0-0.7) Basophils # (Auto) 0.0 x10^3/uL (0.0-0.2) Lactic Acid Level 1.3 mmol/L (0.4-2.0) Urine Collection Type Unknown Urine Color Yellow Urine Clarity Clear Urine pH 7.0 Urine Specific [place] 1.020 Urine Protein Negative mg/dL (NEG-TRACE) Urine Glucose (UA) Negative mg/dL (NEG) Urine Ketones (Stick) Trace mg/dL (NEG) Urine Blood Negative (NEG) Urine Nitrite Negative (NEG) Urine Bilirubin Negative (NEG) Urine Urobilinogen Dipstick 2.0 mg/dL (0.2 mg/dL) Urine Leukocyte Esterase Negative (NEG) Urine RBC Occ /HPF (0-2) Urine WBC 0 /HPF (0-4) Urine Squamous Epithelial Cells Occ /LPF Urine Bacteria 0 /HPF (0-FEW) Urine Mucus Mod /LPF Test 10/16/16 06:00 Sodium Level 142 mmol/L (136-145) Potassium Level 4.4 mmol/L (3.5-5.1) Chloride Level 105 mmol/L (98-107) Carbon Dioxide Level 28 mmol/L (21-32) Anion Gap 9 (6-14) Blood Urea Nitrogen 6 mg/dL (8-26) Creatinine 1.0 mg/dL (0.7-1.3) Estimated GFR (Cockcroft-Gault) 95.3 BUN/Creatinine Ratio 6 (6-20) Glucose Level 94 mg/dL (70-99) Calcium Level 9.5 mg/dL (8.5-10.1) Total Bilirubin 3.7 mg/dL (0.2-1.0) Aspartate Amino Transf (AST/SGOT) 437 U/L (15-37) Alanine Aminotransferase (ALT/SGPT) 599 U/L (16-63) Alkaline Phosphatase 306 U/L (46-116) Total Protein 6.8 g/dL (6.4-8.2) Albumin 3.5 g/dL (3.4-5.0) Albumin/Globulin Ratio 1.1 (1.0-1.7) Laboratory Tests Test 10/16/16 06:00 Sodium Level 142 mmol/L (136-145) Potassium Level 4.4 mmol/L (3.5-5.1) Chloride Level 105 mmol/L (98-107) Carbon Dioxide Level 28 mmol/L (21-32) Anion Gap 9 (6-14) Blood Urea Nitrogen 6 mg/dL (8-26) Creatinine 1.0 mg/dL (0.7-1.3) Estimated GFR (Cockcroft-Gault) 95.3 BUN/Creatinine Ratio 6 (6-20) Glucose Level 94 mg/dL (70-99) Calcium Level 9.5 mg/dL (8.5-10.1) Total Bilirubin 3.7 mg/dL (0.2-1.0) Aspartate Amino Transf (AST/SGOT) 437 U/L (15-37) Alanine Aminotransferase (ALT/SGPT) 599 U/L (16-63) Alkaline Phosphatase 306 U/L (46-116) Total Protein 6.8 g/dL (6.4-8.2) Albumin 3.5 g/dL (3.4-5.0) Albumin/Globulin Ratio 1.1 (1.0-1.7) Medications Current Medications Hydromorphone HCl (Dilaudid) 0.5 mg PRN Q1HR PRN IV SEVERE PAIN Last administered on 10/15/16 00:47; Start 10/15/16 at 00:45; Stop 10/15/16 at 07:00 ; Status DC Ondansetron HCl (Zofran) 4 mg 1X ONCE IV Last administered on 10/15/16 00:46 ; Start 10/15/16 at 01:00; Stop 10/15/16 at 01:01; Status DC Sodium Chloride 1,000 ml @ 1,000 mls/hr 1X ONCE IV Last administered on 00:47; Start 10/15/16 at 01:00; Stop 10/15/16 at 01:59; Status DC Ondansetron HCl (Zofran) 4 mg PRN Q8HRS PRN IV NAUSEA/VOMITING; Start 10/15/16 at 01:45; Stop 10/16/16 at 01:44; Status DC Morphine Sulfate 2 mg PRN Q2HR PRN IV SEVERE PAIN Last administered on 20:52; Start 10/15/16 at 01:45; Stop 10/16/16 at 01:44; Status DC Sodium Chloride 1,000 ml @ 100 mls/hr Q10H IV Last administered on 10/15/16 03:30; Start 10/15/16 at 01:41; Stop 10/15/16 at 15:06; Status DC Iohexol (Omnipaque 300 Mg/ml) 75 ml 1X ONCE IV Last administered on 10/15/16 02:11; Start 10/15/16 at 02:30; Stop 10/15/16 at 02:31; Status DC Info (Do NOT chart on this entry -- for MONITORING) 1 each PRN DAILY PRN MC SEE COMMENTS; Start 10/15/16 at 02:15; Stop 10/17/16 at 02:14 Famotidine (Pepcid) 20 mg QHS IVP Last administered on 10/15/16 20:52; Start 10/15/16 at 21:00 Sodium Chloride 1,000 ml @ 75 mls/hr [id number] IV Last administered on 05:06; Start 10/15/16 at 09:45 Morphine Sulfate 4 mg 1X ONCE IV Last administered on 10/15/16 14:17; Start 10/15/16 at 14:15; Stop 10/15/16 at 14:16; Status DC Vitals/I & O Vital Sign - Last 24 Hours 10/15/16 10/15/16 10/15/16 10/15/16 11:00 14:17 15:00 19:00 Temp 98.2 98.2 97.7 98.2 98.2 97.7 Pulse 67 65 71 Resp 18 14 18 18 B/P (MAP) 121/74 (90) 129/80 (96) 125/79 (94) Pulse Ox 95 96 96 O2 Delivery Room Air Room Air Room Air Room Air 10/15/16 10/15/16 10/15/16 10/15/16 19:28 20:52 21:38 23:00 Temp 98.1 98.1 Pulse 66 Resp 23 18 18 B/P (MAP) 134/79 (97) Pulse Ox 95 O2 Delivery Room Air Room Air Room Air Room Air 10/16/16 07:00 Temp 98.4 98.4 Pulse 66 Resp 18 B/P (MAP) 128/69 (88) Pulse Ox 99 O2 Delivery Room Air Intake and Output 10/15/16 10/15/16 10/16/16 15:00 23:00 07:00 Intake Total 400 ml 870 ml Output Total 350 ml 400 ml Balance 50 ml 470 ml ELIAS PRESTON MD Oct 16, 2016 10:41
[2016-10-16 11:00] VITALS: BP 129/79
--- NOTE | 2016-10-16 11:29 | PDOC ---
PROGRESS NOTES Subjective Subjective Denies pain, mother present Objective Objective Vital Signs Date Time Temp Pulse Resp B/P (MAP) Pulse Ox O2 Delivery O2 Flow Rate FiO2 10/16/16 11:00 97.6 64 18 129/79 (96) 97 Room Air 97.6 Intake and Output 10/16/16 06:59 Intake Total 1270 ml Output Total 750 ml Balance 520 ml Intake Oral 520 ml Other 750 ml Output Urine Total 750 ml # Voids 3 Physical Exam Abdomen: Soft, No tenderness Heart: Regular rate Extremities: No clubbing, No cyanosis General: Alert, Oriented X3, Cooperative HEENT: Atraumatic Lungs: Clear to auscultation MUSCULOSKELETAL: No joint tenderness, No deformity Neuro: Normal speech Psych/Mental Status: Mental status NL Assessment Assessment Problems Medical Problems: (1) Elevated bilirubin Status: Acute (2) Epigastric abdominal pain Status: Acute (3) Transaminitis Status: Acute PIPIDA IMPRESSION: No demonstrable excretion of activity into the biliary system suggesting intrahepatic cholestasis. High-grade bile duct obstruction is less likely. Plan Plan of Care Prior LUQ pain, now resolved, climbing LFTs, PIPIDA interesting and suggestive of intrahepatic cholestasis (no excretion of tracer); that combined with lack of ductal dilation would seem to suggest primary hepatic cholestatic process. Will communicate with GI; will check MRCP given worsening LFTs Comment Review of Relevant I have reviewed the following items jarrod (where applicable) has been applied. Labs Laboratory Tests Test 10/14/16 23:10 10/14/16 23:24 10/15/16 00:33 10/15/16 00:40 Sodium Level 139 mmol/L (136-145) Potassium Level 3.9 mmol/L (3.5-5.1) Chloride Level 102 mmol/L (98-107) Carbon Dioxide Level 29 mmol/L (21-32) Anion Gap 8 (6-14) Blood Urea Nitrogen 11 mg/dL (8-26) Creatinine 1.2 mg/dL (0.7-1.3) Estimated GFR (Cockcroft-Gault) 77.2 Glucose Level 195 mg/dL (70-99) Calcium Level 9.6 mg/dL (8.5-10.1) Total Bilirubin 1.9 mg/dL (0.2-1.0) Direct Bilirubin 1.4 mg/dL (0.0-0.2) Aspartate Amino Transf (AST/SGOT) 261 U/L (15-37) Alanine Aminotransferase (ALT/SGPT) 221 U/L (16-63) Alkaline Phosphatase 141 U/L (46-116) Troponin I Quantitative < 0.017 ng/mL (0.000-0.055) LP-Ayo-R-Type Natriuretic Peptide 13 pg/mL (0-124) Total Protein 7.8 g/dL (6.4-8.2) Albumin 4.0 g/dL (3.4-5.0) Lipase 190 U/L (73-393) White Blood Count 11.0 x10^3/uL (4.0-11.0) Red Blood Count 4.78 x10^6/uL (4.30-5.70) Hemoglobin 15.2 g/dL (13.0-17.5) Hematocrit 44.3 % (39.0-53.0) Mean Corpuscular Volume 93 fL (79-100) Mean Corpuscular Hemoglobin 32 pg (25-35) Mean Corpuscular Hemoglobin Concent 34 g/dL (31-37) Red Cell Distribution Width 13.0 % (11.5-14.5) Platelet Count 177 x10^3/uL (140-400) Neutrophils (%) (Auto) 82 % (31-73) Lymphocytes (%) (Auto) 9 % (24-48) Monocytes (%) (Auto) 8 % (0-9) Eosinophils (%) (Auto) 0 % (0-3) Basophils (%) (Auto) 0 % (0-3) Neutrophils # (Auto) 9.0 x10^3uL (1.8-7.7) Lymphocytes # (Auto) 1.0 x10^3/uL (1.0-4.8) Monocytes # (Auto) 0.9 x10^3/uL (0.0-1.1) Eosinophils # (Auto) 0.0 x10^3/uL (0.0-0.7) Basophils # (Auto) 0.0 x10^3/uL (0.0-0.2) Lactic Acid Level 1.3 mmol/L (0.4-2.0) Urine Collection Type Unknown Urine Color Yellow Urine Clarity Clear Urine pH 7.0 Urine Specific [place] 1.020 Urine Protein Negative mg/dL (NEG-TRACE) Urine Glucose (UA) Negative mg/dL (NEG) Urine Ketones (Stick) Trace mg/dL (NEG) Urine Blood Negative (NEG) Urine Nitrite Negative (NEG) Urine Bilirubin Negative (NEG) Urine Urobilinogen Dipstick 2.0 mg/dL (0.2 mg/dL) Urine Leukocyte Esterase Negative (NEG) Urine RBC Occ /HPF (0-2) Urine WBC 0 /HPF (0-4) Urine Squamous Epithelial Cells Occ /LPF Urine Bacteria 0 /HPF (0-FEW) Urine Mucus Mod /LPF Test 10/16/16 06:00 Sodium Level 142 mmol/L (136-145) Potassium Level 4.4 mmol/L (3.5-5.1) Chloride Level 105 mmol/L (98-107) Carbon Dioxide Level 28 mmol/L (21-32) Anion Gap 9 (6-14) Blood Urea Nitrogen 6 mg/dL (8-26) Creatinine 1.0 mg/dL (0.7-1.3) Estimated GFR (Cockcroft-Gault) 95.3 BUN/Creatinine Ratio 6 (6-20) Glucose Level 94 mg/dL (70-99) Calcium Level 9.5 mg/dL (8.5-10.1) Total Bilirubin 3.7 mg/dL (0.2-1.0) Aspartate Amino Transf (AST/SGOT) 437 U/L (15-37) Alanine Aminotransferase (ALT/SGPT) 599 U/L (16-63) Alkaline Phosphatase 306 U/L (46-116) Total Protein 6.8 g/dL (6.4-8.2) Albumin 3.5 g/dL (3.4-5.0) Albumin/Globulin Ratio 1.1 (1.0-1.7) Laboratory Tests Test 10/16/16 06:00 Sodium Level 142 mmol/L (136-145) Potassium Level 4.4 mmol/L (3.5-5.1) Chloride Level 105 mmol/L (98-107) Carbon Dioxide Level 28 mmol/L (21-32) Anion Gap 9 (6-14) Blood Urea Nitrogen 6 mg/dL (8-26) Creatinine 1.0 mg/dL (0.7-1.3) Estimated GFR (Cockcroft-Gault) 95.3 BUN/Creatinine Ratio 6 (6-20) Glucose Level 94 mg/dL (70-99) Calcium Level 9.5 mg/dL (8.5-10.1) Total Bilirubin 3.7 mg/dL (0.2-1.0) Aspartate Amino Transf (AST/SGOT) 437 U/L (15-37) Alanine Aminotransferase (ALT/SGPT) 599 U/L (16-63) Alkaline Phosphatase 306 U/L (46-116) Total Protein 6.8 g/dL (6.4-8.2) Albumin 3.5 g/dL (3.4-5.0) Albumin/Globulin Ratio 1.1 (1.0-1.7) Medications Current Medications Hydromorphone HCl (Dilaudid) 0.5 mg PRN Q1HR PRN IV SEVERE PAIN Last administered on 10/15/16 00:47; Start 10/15/16 at 00:45; Stop 10/15/16 at 07:00 ; Status DC Ondansetron HCl (Zofran) 4 mg 1X ONCE IV Last administered on 10/15/16 00:46 ; Start 10/15/16 at 01:00; Stop 10/15/16 at 01:01; Status DC Sodium Chloride 1,000 ml @ 1,000 mls/hr 1X ONCE IV Last administered on 00:47; Start 10/15/16 at 01:00; Stop 10/15/16 at 01:59; Status DC Ondansetron HCl (Zofran) 4 mg PRN Q8HRS PRN IV NAUSEA/VOMITING; Start 10/15/16 at 01:45; Stop 10/16/16 at 01:44; Status DC Morphine Sulfate 2 mg PRN Q2HR PRN IV SEVERE PAIN Last administered on 20:52; Start 10/15/16 at 01:45; Stop 10/16/16 at 01:44; Status DC Sodium Chloride 1,000 ml @ 100 mls/hr Q10H IV Last administered on 10/15/16 03:30; Start 10/15/16 at 01:41; Stop 10/15/16 at 15:06; Status DC Iohexol (Omnipaque 300 Mg/ml) 75 ml 1X ONCE IV Last administered on 10/15/16 02:11; Start 10/15/16 at 02:30; Stop 10/15/16 at 02:31; Status DC Info (Do NOT chart on this entry -- for MONITORING) 1 each PRN DAILY PRN MC SEE COMMENTS; Start 10/15/16 at 02:15; Stop 10/17/16 at 02:14 Famotidine (Pepcid) 20 mg QHS IVP Last administered on 10/15/16 20:52; Start 10/15/16 at 21:00 Sodium Chloride 1,000 ml @ 75 mls/hr [id number] IV Last administered on 05:06; Start 10/15/16 at 09:45 Morphine Sulfate 4 mg 1X ONCE IV Last administered on 10/15/16 14:17; Start 10/15/16 at 14:15; Stop 10/15/16 at 14:16; Status DC Vitals/I & O Vital Sign - Last 24 Hours 10/15/16 10/15/16 10/15/16 10/15/16 14:17 15:00 19:00 19:28 Temp 98.2 97.7 98.2 97.7 Pulse 65 71 Resp 14 18 18 B/P (MAP) 129/80 (96) 125/79 (94) Pulse Ox 96 96 O2 Delivery Room Air Room Air Room Air Room Air 10/15/16 10/15/16 10/15/16 10/16/16 20:52 21:38 23:00 07:00 Temp 98.1 98.4 98.1 98.4 Pulse 66 66 Resp 23 18 18 18 B/P (MAP) 134/79 (97) 128/69 (88) Pulse Ox 95 99 O2 Delivery Room Air Room Air Room Air Room Air 10/16/16 11:00 Temp 97.6 97.6 Pulse 64 Resp 18 B/P (MAP) 129/79 (96) Pulse Ox 97 O2 Delivery Room Air Intake and Output 10/15/16 10/15/16 10/16/16 14:59 22:59 06:59 Intake Total 400 ml 870 ml Output Total 350 ml 400 ml Balance 50 ml 470 ml CHAMP DE PAZ MD Oct 16, 2016 11:29
--- NOTE | 2016-10-16 12:28 | PDOC ---
Subjective: Subjective: Family present, helps interpret. No pain, hungry. No h/o liver disease or FH of liver disease. Rare alcohol use. Objective: Vital Signs: Vital Signs Date Time Temp Pulse Resp B/P (MAP) Pulse Ox O2 Delivery O2 Flow Rate FiO2 10/16/16 11:00 97.6 64 18 129/79 (96) 97 Room Air 97.6 Labs: Laboratory Tests Test 10/16/16 06:00 Sodium Level 142 mmol/L Potassium Level 4.4 mmol/L Chloride Level 105 mmol/L Carbon Dioxide Level 28 mmol/L Anion Gap 9 Blood Urea Nitrogen 6 mg/dL Creatinine 1.0 mg/dL Estimated GFR (Cockcroft-Gault) 95.3 BUN/Creatinine Ratio 6 Glucose Level 94 mg/dL Calcium Level 9.5 mg/dL Total Bilirubin 3.7 mg/dL Aspartate Amino Transf (AST/SGOT) 437 U/L Alanine Aminotransferase (ALT/SGPT) 599 U/L Alkaline Phosphatase 306 U/L Total Protein 6.8 g/dL Albumin 3.5 g/dL Albumin/Globulin Ratio 1.1 Imaging: RUQ US 10/15/16 1. Gallstones are visualized including nonmobile stone in gallbladder neck region. CT A/P 10/15/16 Unremarkable for acute issue. PIPIDA 10/15/16 IMPRESSION: No demonstrable excretion of activity into the biliary system suggesting intrahepatic cholestasis. High-grade bile duct obstruction is less likely. PE: GEN: NAD LUNGS: CTAB HEART: RRR ABD: NABS, S/ND/NT NEURO/PSYCH: A & O 3 A/P: Elevated LFTs - worse Abd pain - resolved -- D/w Dr. Evans - concern for primary hepatic cholestatic process, has ordered MRCP. Reviewed w/ Dr. Figueroa - ?unable to concentrate technetium w/ jaundice. Await MRCP. IVANA THORNTON Oct 16, 2016 12:28
[2016-10-16 15:00] VITALS: BP 126/80
[2016-10-16 19:00] VITALS: BP 136/76
[2016-10-16] MEDS: FAMOTIDINE 20 MG/2 ML VIAL IVP SCH (21:00)
[2016-10-16 23:00] VITALS: BP 116/55
[2016-10-17 03:00] VITALS: BP 132/80
[2016-10-17 04:45] LABS: BASO % 0 % (0-3); EOS % 3 % (0-3); HEMATOCRIT 43.3 % (39.0-53.0); HEMOGLOBIN 15.1 g/dL (13.0-17.5); LYMPH # 0.8 x10^3/uL (1.0-4.8); LYMPH % 15 % (24-48); MEAN CORPUSCULAR HEMOGLOBIN 32 pg (25-35); MEAN CORPUSCULAR HGB CONC 35 g/dL (31-37); MEAN CORPUSCULAR VOLUME 92 fL (79-100); MONO % 9 % (0-9); NEUT % 72 % (31-73); PLATELET COUNT 167 x10^3/uL (140-400); RED BLOOD COUNT 4.72 x10^6/uL (4.30-5.70); RED CELL DISTRIBUTION WIDTH 12.8 % (11.5-14.5); WHITE BLOOD COUNT 5.4 x10^3/uL (4.0-11.0)
[2016-10-17 05:00] LABS: ALBUMIN 3.5 g/dL (3.4-5.0); ALBUMIN/GLOBULIN RATIO 0.9 (1.0-1.7); CALCIUM 9.4 mg/dL (8.5-10.1); CREATININE 1.1 mg/dL (0.7-1.3); DIRECT BILIRUBIN 0.9 mg/dL (0.0-0.2); GFR 85.4; POTASSIUM 3.4 mmol/L (3.5-5.1); TOTAL BILIRUBIN 1.4 mg/dL (0.2-1.0); TOTAL PROTEIN 7.5 g/dL (6.4-8.2)
[2016-10-17 07:00] VITALS: BP 122/72
--- NOTE | 2016-10-17 07:28 | RAD ---
MRCP, 10/16/2016: History: Abnormal liver function test Imaging was performed in axial and coronal planes utilizing a variety of imaging sequences including T2 weighted, fat suppressed T2-weighted, and opposed phase gradient echo echo sequences. 2-D and 3-D MRCP sequences were also performed with 3-D MIP reconstructions produced. Many of the images are compromised by patient motion artifact. The bile ducts are small and poorly delineated. The gallbladder is contracted. There is no evidence of a bile duct calculus or obstruction. The liver, pancreas and spleen are unremarkable. IMPRESSION: Suboptimal exam demonstrating no biliary tract abnormality.
--- NOTE | 2016-10-17 09:16 | PDOC ---
PROGRESS NOTES Subjective Subjective denies pain, wants to eat, is NPO for now Objective Objective Vital Signs Date Time Temp Pulse Resp B/P (MAP) Pulse Ox O2 Delivery O2 Flow Rate FiO2 10/17/16 07:00 98.2 64 16 122/72 (89) 96 Room Air 98.2 Intake and Output 10/17/16 06:59 Intake Total 465 ml Output Total 1400 ml Balance -935 ml Intake Oral 465 ml Output Urine Total 1400 ml Physical Exam Abdomen: Soft, No tenderness Heart: Regular rate Extremities: No clubbing, No cyanosis General: Alert, Oriented X3, Cooperative Lungs: Clear to auscultation Psych/Mental Status: Mental status NL Skin: No rashes Assessment Assessment Problems Medical Problems: (1) Elevated bilirubin Status: Acute (2) Epigastric abdominal pain Status: Acute (3) Transaminitis Status: Acute Plan Plan of Care MRCP results noted, suboptimal study; Tbil coming down, gallstones, but cholestatic picture seems intrahepatic from current evaluation; no surgery plans at this time, GI following Comment Review of Relevant I have reviewed the following items jarrod (where applicable) has been applied. Labs Laboratory Tests Test 10/16/16 06:00 10/17/16 03:25 Sodium Level 142 mmol/L (136-145) 141 mmol/L (136-145) Potassium Level 4.4 mmol/L (3.5-5.1) 3.4 mmol/L (3.5-5.1) Chloride Level 105 mmol/L (98-107) 103 mmol/L (98-107) Carbon Dioxide Level 28 mmol/L (21-32) 28 mmol/L (21-32) Anion Gap 9 (6-14) 10 (6-14) Blood Urea Nitrogen 6 mg/dL (8-26) 8 mg/dL (8-26) Creatinine 1.0 mg/dL (0.7-1.3) 1.1 mg/dL (0.7-1.3) Estimated GFR (Cockcroft-Gault) 95.3 85.4 BUN/Creatinine Ratio 6 (6-20) 7 (6-20) Glucose Level 94 mg/dL (70-99) 145 mg/dL (70-99) Calcium Level 9.5 mg/dL (8.5-10.1) 9.4 mg/dL (8.5-10.1) Total Bilirubin 3.7 mg/dL (0.2-1.0) 1.4 mg/dL (0.2-1.0) Aspartate Amino Transf (AST/SGOT) 437 U/L (15-37) 232 U/L (15-37) Alanine Aminotransferase (ALT/SGPT) 599 U/L (16-63) 532 U/L (16-63) Alkaline Phosphatase 306 U/L (46-116) 386 U/L (46-116) Total Protein 6.8 g/dL (6.4-8.2) 7.5 g/dL (6.4-8.2) Albumin 3.5 g/dL (3.4-5.0) 3.5 g/dL (3.4-5.0) Albumin/Globulin Ratio 1.1 (1.0-1.7) 0.9 (1.0-1.7) White Blood Count 5.4 x10^3/uL (4.0-11.0) Red Blood Count 4.72 x10^6/uL (4.30-5.70) Hemoglobin 15.1 g/dL (13.0-17.5) Hematocrit 43.3 % (39.0-53.0) Mean Corpuscular Volume 92 fL (79-100) Mean Corpuscular Hemoglobin 32 pg (25-35) Mean Corpuscular Hemoglobin Concent 35 g/dL (31-37) Red Cell Distribution Width 12.8 % (11.5-14.5) Platelet Count 167 x10^3/uL (140-400) Neutrophils (%) (Auto) 72 % (31-73) Lymphocytes (%) (Auto) 15 % (24-48) Monocytes (%) (Auto) 9 % (0-9) Eosinophils (%) (Auto) 3 % (0-3) Basophils (%) (Auto) 0 % (0-3) Neutrophils # (Auto) 3.9 x10^3uL (1.8-7.7) Lymphocytes # (Auto) 0.8 x10^3/uL (1.0-4.8) Monocytes # (Auto) 0.5 x10^3/uL (0.0-1.1) Eosinophils # (Auto) 0.2 x10^3/uL (0.0-0.7) Basophils # (Auto) 0.0 x10^3/uL (0.0-0.2) Direct Bilirubin 0.9 mg/dL (0.0-0.2) Laboratory Tests Test 10/17/16 03:25 White Blood Count 5.4 x10^3/uL (4.0-11.0) Red Blood Count 4.72 x10^6/uL (4.30-5.70) Hemoglobin 15.1 g/dL (13.0-17.5) Hematocrit 43.3 % (39.0-53.0) Mean Corpuscular Volume 92 fL (79-100) Mean Corpuscular Hemoglobin 32 pg (25-35) Mean Corpuscular Hemoglobin Concent 35 g/dL (31-37) Red Cell Distribution Width 12.8 % (11.5-14.5) Platelet Count 167 x10^3/uL (140-400) Neutrophils (%) (Auto) 72 % (31-73) Lymphocytes (%) (Auto) 15 % (24-48) Monocytes (%) (Auto) 9 % (0-9) Eosinophils (%) (Auto) 3 % (0-3) Basophils (%) (Auto) 0 % (0-3) Neutrophils # (Auto) 3.9 x10^3uL (1.8-7.7) Lymphocytes # (Auto) 0.8 x10^3/uL (1.0-4.8) Monocytes # (Auto) 0.5 x10^3/uL (0.0-1.1) Eosinophils # (Auto) 0.2 x10^3/uL (0.0-0.7) Basophils # (Auto) 0.0 x10^3/uL (0.0-0.2) Sodium Level 141 mmol/L (136-145) Potassium Level 3.4 mmol/L (3.5-5.1) Chloride Level 103 mmol/L (98-107) Carbon Dioxide Level 28 mmol/L (21-32) Anion Gap 10 (6-14) Blood Urea Nitrogen 8 mg/dL (8-26) Creatinine 1.1 mg/dL (0.7-1.3) Estimated GFR (Cockcroft-Gault) 85.4 BUN/Creatinine Ratio 7 (6-20) Glucose Level 145 mg/dL (70-99) Calcium Level 9.4 mg/dL (8.5-10.1) Total Bilirubin 1.4 mg/dL (0.2-1.0) Direct Bilirubin 0.9 mg/dL (0.0-0.2) Aspartate Amino Transf (AST/SGOT) 232 U/L (15-37) Alanine Aminotransferase (ALT/SGPT) 532 U/L (16-63) Alkaline Phosphatase 386 U/L (46-116) Total Protein 7.5 g/dL (6.4-8.2) Albumin 3.5 g/dL (3.4-5.0) Albumin/Globulin Ratio 0.9 (1.0-1.7) Medications Current Medications Hydromorphone HCl (Dilaudid) 0.5 mg PRN Q1HR PRN IV SEVERE PAIN Last administered on 10/15/16 00:47; Start 10/15/16 at 00:45; Stop 10/15/16 at 07:00 ; Status DC Ondansetron HCl (Zofran) 4 mg 1X ONCE IV Last administered on 10/15/16 00:46 ; Start 10/15/16 at 01:00; Stop 10/15/16 at 01:01; Status DC Sodium Chloride 1,000 ml @ 1,000 mls/hr 1X ONCE IV Last administered on 00:47; Start 10/15/16 at 01:00; Stop 10/15/16 at 01:59; Status DC Ondansetron HCl (Zofran) 4 mg PRN Q8HRS PRN IV NAUSEA/VOMITING; Start 10/15/16 at 01:45; Stop 10/16/16 at 01:44; Status DC Morphine Sulfate 2 mg PRN Q2HR PRN IV SEVERE PAIN Last administered on 20:52; Start 10/15/16 at 01:45; Stop 10/16/16 at 01:44; Status DC Sodium Chloride 1,000 ml @ 100 mls/hr Q10H IV Last administered on 10/15/16 03:30; Start 10/15/16 at 01:41; Stop 10/15/16 at 15:06; Status DC Iohexol (Omnipaque 300 Mg/ml) 75 ml 1X ONCE IV Last administered on 10/15/16 02:11; Start 10/15/16 at 02:30; Stop 10/15/16 at 02:31; Status DC Info (Do NOT chart on this entry -- for MONITORING) 1 each PRN DAILY PRN MC SEE COMMENTS; Start 10/15/16 at 02:15; Stop 10/17/16 at 02:14; Status DC Famotidine (Pepcid) 20 mg QHS IVP Last administered on 10/16/16 21:00; Start 10/15/16 at 21:00 Sodium Chloride 1,000 ml @ 75 mls/hr [id number] IV Last administered on 22:17; Start 10/15/16 at 09:45 Morphine Sulfate 4 mg 1X ONCE IV Last administered on 10/15/16 14:17; Start 10/15/16 at 14:15; Stop 10/15/16 at 14:16; Status DC Vitals/I & O Vital Sign - Last 24 Hours 10/16/16 10/16/16 10/16/16 10/16/16 11:00 15:00 19:00 20:00 Temp 97.6 98.5 98.9 97.6 98.5 98.9 Pulse 64 63 68 Resp 18 18 20 B/P (MAP) 129/79 (96) 126/80 (95) 136/76 (96) Pulse Ox 97 98 95 O2 Delivery Room Air Room Air Room Air Room Air 10/16/16 10/17/16 10/17/16 23:00 03:00 07:00 Temp 97.5 97.4 98.2 97.5 97.4 98.2 Pulse 64 60 64 Resp 18 18 16 B/P (MAP) 116/55 (75) 132/80 (97) 122/72 (89) Pulse Ox 97 99 96 O2 Delivery Room Air Room Air Room Air Intake and Output 10/16/16 10/16/16 10/17/16 14:59 22:59 06:59 Intake Total 465 ml 0 ml Output Total 800 ml 600 ml Balance 465 ml -800 ml -600 ml CHAMP DE PAZ MD Oct 17, 2016 09:16
--- NOTE | 2016-10-17 09:58 | PDOC ---
PROGRESS NOTES Chief Complaint Chief Complaint Chief complaint: Abdominal pain Assessment and plan #1 Intrahepatic cholestasis: Monitor LFTS, D/W surgery, GI ordered work up, advanced diet per GI. Vitals Vitals Vital Signs Date Time Temp Pulse Resp B/P (MAP) Pulse Ox O2 Delivery O2 Flow Rate FiO2 10/17/16 08:00 Room Air 10/17/16 07:00 98.2 64 16 122/72 (89) 96 98.2 Physical Exam General: Alert, Oriented X3, Cooperative Heart: Regular rate, Normal S1, Normal S2 Lungs: Clear Abdomen: Soft, No tenderness Extremities: No clubbing, No cyanosis Skin: No rashes Labs LABS Laboratory Tests Test 10/17/16 03:25 White Blood Count 5.4 x10^3/uL (4.0-11.0) Red Blood Count 4.72 x10^6/uL (4.30-5.70) Hemoglobin 15.1 g/dL (13.0-17.5) Hematocrit 43.3 % (39.0-53.0) Mean Corpuscular Volume 92 fL (79-100) Mean Corpuscular Hemoglobin 32 pg (25-35) Mean Corpuscular Hemoglobin Concent 35 g/dL (31-37) Red Cell Distribution Width 12.8 % (11.5-14.5) Platelet Count 167 x10^3/uL (140-400) Neutrophils (%) (Auto) 72 % (31-73) Lymphocytes (%) (Auto) 15 % (24-48) Monocytes (%) (Auto) 9 % (0-9) Eosinophils (%) (Auto) 3 % (0-3) Basophils (%) (Auto) 0 % (0-3) Neutrophils # (Auto) 3.9 x10^3uL (1.8-7.7) Lymphocytes # (Auto) 0.8 x10^3/uL (1.0-4.8) Monocytes # (Auto) 0.5 x10^3/uL (0.0-1.1) Eosinophils # (Auto) 0.2 x10^3/uL (0.0-0.7) Basophils # (Auto) 0.0 x10^3/uL (0.0-0.2) Sodium Level 141 mmol/L (136-145) Potassium Level 3.4 mmol/L (3.5-5.1) Chloride Level 103 mmol/L (98-107) Carbon Dioxide Level 28 mmol/L (21-32) Anion Gap 10 (6-14) Blood Urea Nitrogen 8 mg/dL (8-26) Creatinine 1.1 mg/dL (0.7-1.3) Estimated GFR (Cockcroft-Gault) 85.4 BUN/Creatinine Ratio 7 (6-20) Glucose Level 145 mg/dL (70-99) Calcium Level 9.4 mg/dL (8.5-10.1) Total Bilirubin 1.4 mg/dL (0.2-1.0) Direct Bilirubin 0.9 mg/dL (0.0-0.2) Aspartate Amino Transf (AST/SGOT) 232 U/L (15-37) Alanine Aminotransferase (ALT/SGPT) 532 U/L (16-63) Alkaline Phosphatase 386 U/L (46-116) Total Protein 7.5 g/dL (6.4-8.2) Albumin 3.5 g/dL (3.4-5.0) Albumin/Globulin Ratio 0.9 (1.0-1.7) Assessment and Plan Assessmemt and Plan Problems Medical Problems: (1) Elevated bilirubin Status: Acute (2) Epigastric abdominal pain Status: Acute (3) Transaminitis Status: Acute Problems: Comment Review of Relevant I have reviewed the following items jarrod (where applicable) has been applied. Labs Laboratory Tests Test 10/16/16 06:00 10/17/16 03:25 Sodium Level 142 mmol/L (136-145) 141 mmol/L (136-145) Potassium Level 4.4 mmol/L (3.5-5.1) 3.4 mmol/L (3.5-5.1) Chloride Level 105 mmol/L (98-107) 103 mmol/L (98-107) Carbon Dioxide Level 28 mmol/L (21-32) 28 mmol/L (21-32) Anion Gap 9 (6-14) 10 (6-14) Blood Urea Nitrogen 6 mg/dL (8-26) 8 mg/dL (8-26) Creatinine 1.0 mg/dL (0.7-1.3) 1.1 mg/dL (0.7-1.3) Estimated GFR (Cockcroft-Gault) 95.3 85.4 BUN/Creatinine Ratio 6 (6-20) 7 (6-20) Glucose Level 94 mg/dL (70-99) 145 mg/dL (70-99) Calcium Level 9.5 mg/dL (8.5-10.1) 9.4 mg/dL (8.5-10.1) Total Bilirubin 3.7 mg/dL (0.2-1.0) 1.4 mg/dL (0.2-1.0) Aspartate Amino Transf (AST/SGOT) 437 U/L (15-37) 232 U/L (15-37) Alanine Aminotransferase (ALT/SGPT) 599 U/L (16-63) 532 U/L (16-63) Alkaline Phosphatase 306 U/L (46-116) 386 U/L (46-116) Total Protein 6.8 g/dL (6.4-8.2) 7.5 g/dL (6.4-8.2) Albumin 3.5 g/dL (3.4-5.0) 3.5 g/dL (3.4-5.0) Albumin/Globulin Ratio 1.1 (1.0-1.7) 0.9 (1.0-1.7) White Blood Count 5.4 x10^3/uL (4.0-11.0) Red Blood Count 4.72 x10^6/uL (4.30-5.70) Hemoglobin 15.1 g/dL (13.0-17.5) Hematocrit 43.3 % (39.0-53.0) Mean Corpuscular Volume 92 fL (79-100) Mean Corpuscular Hemoglobin 32 pg (25-35) Mean Corpuscular Hemoglobin Concent 35 g/dL (31-37) Red Cell Distribution Width 12.8 % (11.5-14.5) Platelet Count 167 x10^3/uL (140-400) Neutrophils (%) (Auto) 72 % (31-73) Lymphocytes (%) (Auto) 15 % (24-48) Monocytes (%) (Auto) 9 % (0-9) Eosinophils (%) (Auto) 3 % (0-3) Basophils (%) (Auto) 0 % (0-3) Neutrophils # (Auto) 3.9 x10^3uL (1.8-7.7) Lymphocytes # (Auto) 0.8 x10^3/uL (1.0-4.8) Monocytes # (Auto) 0.5 x10^3/uL (0.0-1.1) Eosinophils # (Auto) 0.2 x10^3/uL (0.0-0.7) Basophils # (Auto) 0.0 x10^3/uL (0.0-0.2) Direct Bilirubin 0.9 mg/dL (0.0-0.2) Laboratory Tests Test 10/17/16 03:25 White Blood Count 5.4 x10^3/uL (4.0-11.0) Red Blood Count 4.72 x10^6/uL (4.30-5.70) Hemoglobin 15.1 g/dL (13.0-17.5) Hematocrit 43.3 % (39.0-53.0) Mean Corpuscular Volume 92 fL (79-100) Mean Corpuscular Hemoglobin 32 pg (25-35) Mean Corpuscular Hemoglobin Concent 35 g/dL (31-37) Red Cell Distribution Width 12.8 % (11.5-14.5) Platelet Count 167 x10^3/uL (140-400) Neutrophils (%) (Auto) 72 % (31-73) Lymphocytes (%) (Auto) 15 % (24-48) Monocytes (%) (Auto) 9 % (0-9) Eosinophils (%) (Auto) 3 % (0-3) Basophils (%) (Auto) 0 % (0-3) Neutrophils # (Auto) 3.9 x10^3uL (1.8-7.7) Lymphocytes # (Auto) 0.8 x10^3/uL (1.0-4.8) Monocytes # (Auto) 0.5 x10^3/uL (0.0-1.1) Eosinophils # (Auto) 0.2 x10^3/uL (0.0-0.7) Basophils # (Auto) 0.0 x10^3/uL (0.0-0.2) Sodium Level 141 mmol/L (136-145) Potassium Level 3.4 mmol/L (3.5-5.1) Chloride Level 103 mmol/L (98-107) Carbon Dioxide Level 28 mmol/L (21-32) Anion Gap 10 (6-14) Blood Urea Nitrogen 8 mg/dL (8-26) Creatinine 1.1 mg/dL (0.7-1.3) Estimated GFR (Cockcroft-Gault) 85.4 BUN/Creatinine Ratio 7 (6-20) Glucose Level 145 mg/dL (70-99) Calcium Level 9.4 mg/dL (8.5-10.1) Total Bilirubin 1.4 mg/dL (0.2-1.0) Direct Bilirubin 0.9 mg/dL (0.0-0.2) Aspartate Amino Transf (AST/SGOT) 232 U/L (15-37) Alanine Aminotransferase (ALT/SGPT) 532 U/L (16-63) Alkaline Phosphatase 386 U/L (46-116) Total Protein 7.5 g/dL (6.4-8.2) Albumin 3.5 g/dL (3.4-5.0) Albumin/Globulin Ratio 0.9 (1.0-1.7) Medications Current Medications Hydromorphone HCl (Dilaudid) 0.5 mg PRN Q1HR PRN IV SEVERE PAIN Last administered on 10/15/16 00:47; Start 10/15/16 at 00:45; Stop 10/15/16 at 07:00 ; Status DC Ondansetron HCl (Zofran) 4 mg 1X ONCE IV Last administered on 10/15/16 00:46 ; Start 10/15/16 at 01:00; Stop 10/15/16 at 01:01; Status DC Sodium Chloride 1,000 ml @ 1,000 mls/hr 1X ONCE IV Last administered on 00:47; Start 10/15/16 at 01:00; Stop 10/15/16 at 01:59; Status DC Ondansetron HCl (Zofran) 4 mg PRN Q8HRS PRN IV NAUSEA/VOMITING; Start 10/15/16 at 01:45; Stop 10/16/16 at 01:44; Status DC Morphine Sulfate 2 mg PRN Q2HR PRN IV SEVERE PAIN Last administered on 20:52; Start 10/15/16 at 01:45; Stop 10/16/16 at 01:44; Status DC Sodium Chloride 1,000 ml @ 100 mls/hr Q10H IV Last administered on 10/15/16 03:30; Start 10/15/16 at 01:41; Stop 10/15/16 at 15:06; Status DC Iohexol (Omnipaque 300 Mg/ml) 75 ml 1X ONCE IV Last administered on 10/15/16 02:11; Start 10/15/16 at 02:30; Stop 10/15/16 at 02:31; Status DC Info (Do NOT chart on this entry -- for MONITORING) 1 each PRN DAILY PRN MC SEE COMMENTS; Start 10/15/16 at 02:15; Stop 10/17/16 at 02:14; Status DC Famotidine (Pepcid) 20 mg QHS IVP Last administered on 10/16/16 21:00; Start 10/15/16 at 21:00 Sodium Chloride 1,000 ml @ 75 mls/hr [id number] IV Last administered on 22:17; Start 10/15/16 at 09:45 Morphine Sulfate 4 mg 1X ONCE IV Last administered on 10/15/16 14:17; Start 10/15/16 at 14:15; Stop 10/15/16 at 14:16; Status DC Vitals/I & O Vital Sign - Last 24 Hours 10/16/16 10/16/16 10/16/16 10/16/16 11:00 15:00 19:00 20:00 Temp 97.6 98.5 98.9 97.6 98.5 98.9 Pulse 64 63 68 Resp 18 18 20 B/P (MAP) 129/79 (96) 126/80 (95) 136/76 (96) Pulse Ox 97 98 95 O2 Delivery Room Air Room Air Room Air Room Air 10/16/16 10/17/16 10/17/16 10/17/16 23:00 03:00 07:00 08:00 Temp 97.5 97.4 98.2 97.5 97.4 98.2 Pulse 64 60 64 Resp 18 18 16 B/P (MAP) 116/55 (75) 132/80 (97) 122/72 (89) Pulse Ox 97 99 96 O2 Delivery Room Air Room Air Room Air Room Air Intake and Output 10/16/16 10/16/16 10/17/16 15:00 23:00 07:00 Intake Total 465 ml 0 ml Output Total 800 ml 600 ml Balance 465 ml -800 ml -600 ml ELIAS PRESTON MD Oct 17, 2016 09:58
[2016-10-17] MEDS ORDERED: POTASSIUM CHLORIDE 20 MEQ TABLET.ER. PO ONE (10:30)
--- NOTE | 2016-10-17 10:36 | PDOC ---
Subjective: Subjective: Per mother - feels much better, anxious to go home and get back to work. Tolerated breakfast. Objective: Vital Signs: Vital Signs Date Time Temp Pulse Resp B/P (MAP) Pulse Ox O2 Delivery O2 Flow Rate FiO2 10/17/16 08:00 Room Air 10/17/16 07:00 98.2 64 16 122/72 (89) 96 98.2 Labs: Laboratory Tests Test 10/17/16 03:25 White Blood Count 5.4 x10^3/uL Red Blood Count 4.72 x10^6/uL Hemoglobin 15.1 g/dL Hematocrit 43.3 % Mean Corpuscular Volume 92 fL Mean Corpuscular Hemoglobin 32 pg Mean Corpuscular Hemoglobin Concent 35 g/dL Red Cell Distribution Width 12.8 % Platelet Count 167 x10^3/uL Neutrophils (%) (Auto) 72 % Lymphocytes (%) (Auto) 15 % Monocytes (%) (Auto) 9 % Eosinophils (%) (Auto) 3 % Basophils (%) (Auto) 0 % Neutrophils # (Auto) 3.9 x10^3uL Lymphocytes # (Auto) 0.8 x10^3/uL Monocytes # (Auto) 0.5 x10^3/uL Eosinophils # (Auto) 0.2 x10^3/uL Basophils # (Auto) 0.0 x10^3/uL Sodium Level 141 mmol/L Potassium Level 3.4 mmol/L Chloride Level 103 mmol/L Carbon Dioxide Level 28 mmol/L Anion Gap 10 Blood Urea Nitrogen 8 mg/dL Creatinine 1.1 mg/dL Estimated GFR (Cockcroft-Gault) 85.4 BUN/Creatinine Ratio 7 Glucose Level 145 mg/dL Calcium Level 9.4 mg/dL Total Bilirubin 1.4 mg/dL Direct Bilirubin 0.9 mg/dL Aspartate Amino Transf (AST/SGOT) 232 U/L Alanine Aminotransferase (ALT/SGPT) 532 U/L Alkaline Phosphatase 386 U/L Total Protein 7.5 g/dL Albumin 3.5 g/dL Albumin/Globulin Ratio 0.9 Imaging: RUQ US 10/15/16 Gallstones are visualized including nonmobile stone in gallbladder neck region. CT A/P 10/15/16 Unremarkable. PIPIDA 10/15/16 IMPRESSION: No demonstrable excretion of activity into the biliary system suggesting intrahepatic cholestasis. High-grade bile duct obstruction is less likely. MRCP 10/16/16 Many of the images are compromised by patient motion artifact. The bile ducts are small and poorly delineated. The gallbladder is contracted. There is no evidence of a bile duct calculus or obstruction. The liver, pancreas and spleen are unremarkable. IMPRESSION: Suboptimal exam demonstrating no biliary tract abnormality. PE: GEN: NAD, smiling w/ empty breakfast tray LUNGS: clear HEART: RRR ABD: non-tender NEURO/PSYCH: A & O 3 A/P: Elevated LFTs - better Abd pain - resolved -- Imaging as above, concern for intrahepatic cholestasis. D/w Dr. Figueroa - will check additional labs. He's feeling much better and wants to DC - okay per GI. Follow-up w/ PCP for lab results. IVANA THORNTON Oct 17, 2016 10:36
[2016-10-17 10:45] VITALS: BP 125/70
--- NOTE | 2016-10-17 11:32 | PDOC3 ---
Discharge Summary* Admitting Diagnosis Problems Medical Problems: (1) Elevated bilirubin Status: Acute (2) Epigastric abdominal pain Status: Acute (3) Transaminitis Status: Acute Problems: Final Diagnosis Problems Medical Problems: (1) Elevated bilirubin Status: Acute (2) Epigastric abdominal pain Status: Acute (3) Transaminitis Status: Acute Brief Hospital Course Date of discharge 10/17/2016 Final diagnosis #1 Intrahepatic cholestasis with elevated LFTs. Biliary obstruction ruled out. A 51-year-old male patient with no significant prior medical condition present to the ER with complaints of abdominal pain, US suggestive of gallstones, he was seen by gastroenterology and general surgery.. Patient's symptoms improved with symptomatic treatment,but further imaging studies such as a HIDA scan and MRCP is not suggestive of any biliary obstruction. He tolerated diet very well and his LFTs are trending down today. I did discuss case with the general surgery recommended no surgical plans at this time. Gastroenterology is doing further workup for intrahepatic cholestasis, those labs are still pending, advised patient's mother to see gastroenterology in clinic for further workup and continued care. Discharge exam Gen. alert oriented 3 Heart S1 and S2 present Abdomen soft nontender no organomegaly Lungs anterior chest clear Extremities no edema CONDITION AT DISCHARGE: Stable Diet: Regular FOLLOW UP APPOINTMENT: With gastroenterology in 4 weeks Time Spent Total time spent with patient 32 minutes for coordination of care, counseling, and education. ELIAS PRESTON MD Oct 17, 2016 11:32
[2016-10-17 15:00] VITALS: BP 124/76
[2016-10-17 17:14] LABS: HEP A IGM ABDY Negative (Negative)
== END 2016-10-17 16:00 | disposition home or self-care (01) | DRG 446 ==
LOC: ER 22:58 → 6 SOUTH 10-15 00:41
PROVIDERS: ADMIT Internal Medicine; ATTEND Internal Medicine
DX: K80.71 Calculus of gallbladder and bile duct without cholecystitis with obstruction (principal); R74.0 Nonspecific elevation of levels of transaminase and lactic acid dehydrogenase [LDH]; H91.3 Deaf nonspeaking, not elsewhere classified; Z82.49 Family history of ischemic heart disease and other diseases of the circulatory system
CPT/HCPCS: 36415; 74177; 74181; 76705; 78226; 80048; 80053; 80074; 80076; 81001; 82248; 83605; 83690; 83880; 84484; 85027; 93005; 96361; 96374; 96375; A9537; J1170; J2270; J2405; J7030; Q9967; S0028; 99285-25

== ENCOUNTER → 2018-04-25 | Outpatient (CLI) | payer OTHER ==
--- NOTE | 2018-04-25 08:35 | RAD ---
Right upper quadrant abdominal ultrasound, 04/25/2018: HISTORY: Right upper quadrant pain The gallbladder contains multiple foci of increased echogenicity with associated posterior acoustic shadowing. The appearance is that of cholelithiasis. The gallbladder wall is not thickened. The common hepatic duct is of normal caliber. There is no evidence of a hepatic mass visualized portions of the pancreas and right kidney are unremarkable. IMPRESSION: Cholelithiasis Electronically signed by: Thang Segovia MD (04/25/2018 8:30 AM) [facility]
== END | disposition home or self-care (01) ==
LOC: US 06:48
PROVIDERS: ATTEND Surgery
DX: K80.20 Calculus of gallbladder without cholecystitis without obstruction (principal)
CPT/HCPCS: 76705